=== PATIENT | female | born 1975 | race Caucasian/White ===

== ENCOUNTER 2016-09-12 22:49 | Emergency (ER) | payer SELFPAY ==
[~2016-09-12] VITALS: Ht 167.6 cm; Wt 67.0 kg
[2016-09-13 00:28] VITALS: BP 105/68
== END 2016-09-13 00:37 | disposition home or self-care (01) ==
LOC: ER 22:51
DX: F10.129 Alcohol abuse with intoxication, unspecified (principal)
CPT/HCPCS: 99283